=== PATIENT | female | born 2000 | race African-American/Black ===

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

== ENCOUNTER 2021-09-13 13:22 | Emergency (ER) | payer OTHER | END 2021-09-13 14:20 | disposition home or self-care (01) | LOC: NAV ERS 13:22 | DX: S51.812A Laceration without foreign body of left forearm, initial encounter (principal); X78.1XXA Intentional self-harm by knife, initial encounter | CPT/HCPCS: 99283 ==

== ENCOUNTER 2022-05-21 11:43 | Emergency (ER) | payer OTHER ==
[2022-05-21] MEDS ORDERED: Lidocaine 1% (PF) 30 ML VIAL ONE (12:07)
[2022-05-21] MEDS ORDERED: Bacitracin 1 PK ONE (12:30)
== END 2022-05-21 12:40 | disposition home or self-care (01) ==
LOC: NAV ERS 11:43
DX: L03.031 Cellulitis of right toe (principal); G43.909 Migraine, unspecified, not intractable, without status migrainosus; F17.290 Nicotine dependence, other tobacco product, uncomplicated
CPT/HCPCS: 11730; J2001

== ENCOUNTER 2025-04-08 08:43 | Emergency (ER) | payer OTHER, SELFPAY ==
[2025-04-08 09:23] LABS: ALT (SGPT) 17 U/L (Less than 34); AST (SGOT) 43 U/L (11-34); Albumin 4.7 g/dL (3.1-4.5); Alkaline Phosphatase 68 U/L (40-110); Anion Gap 19 mmol/L (10-20); BUN (Urea Nitrogen) 11 mg/dL (7.0-18.7); Bilirubin, Total 1.4 mg/dL (0.3-1.2); Calc. Creatinine Clearance 0 mL/min (70-130); Calcium 9.4 mg/dL (7.8-10.44); Carbon Dioxide 19 mmol/L (22-29); Chloride 105 mmol/L (98-107); Globulin 3.4 g/dL (2.4-3.5); Glucose 142 mg/dL (70-105); Potassium 3.6 mmol/L (3.5-5.1); Sodium 139 mmol/L (136-145)
[2025-04-08 09:27] LABS: Red Blood Cell (RBC) Count 4.75 mill/uL (4.20-5.40); White Blood Cell (WBC) Count 11.2 10x3/uL (4.8-10.8)
[2025-04-08 09:30] LABS: Hematocrit 38.1 % (36.0-47.0); Hemoglobin 13.1 g/dL (12.0-16.0); MDiff Complete? YES; Manual Diff?? YES; Mean Corpuscular Hemoglobin 27.6 pg (27.0-31.0); Mean Corpuscular Volume 80.3 fl (78.0-98.0); Platelet Count 217 10x3/uL (130-400)
[2025-04-08 09:31] LABS: Platelet Adequacy Comment Platelets Normal
[2025-04-08 10:44] LABS: Glucose, Urine (Dipstick) Negative (Negative); Leukocyte Negative (Negative); Protein, Urine (Dipstick) 30 mg/dL (Neg-Trace); Specific Gravity, Urine 1.010 (1.005-1.030)
[2025-04-08 10:51] LABS: Cocaine Metabolite Screen PRELIM POSITIVE (Negative); THC/Cannabinoid Screen PRELIM POSITIVE (Negative); Tricyclic Screen Negative (Negative)
== END 2025-04-08 11:49 | disposition home or self-care (01) ==
LOC: NAV ERS 08:43
DX: G40.909 Epilepsy, unspecified, not intractable, without status epilepticus (principal); F12.10 Cannabis abuse, uncomplicated; F14.10 Cocaine abuse, uncomplicated; K02.9 Dental caries, unspecified; F17.290 Nicotine dependence, other tobacco product, uncomplicated
CPT/HCPCS: 80053; 80306; 81001; 84146; 85025; 99284; J7030